=== PATIENT | male | born 2000 | race Two or more races ===

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

== ENCOUNTER 2022-03-11 04:30 | Emergency (ER) | payer OTHER ==
[2022-03-11] MEDS ORDERED: Morphine 4 MG/ML VIAL ONE (04:47)
[2022-03-11] MEDS ORDERED: HYDROcodone/Acetaminophen 5/325 mg Tablet ONE (05:20)
[2022-03-11] MEDS ORDERED: Ketorolac Tromethamine 30 MG/ML VIAL ONE (05:20)
== END 2022-03-11 05:37 | disposition home or self-care (01) ==
LOC: BURERS 04:30
DX: S42.411A Displaced simple supracondylar fracture without intercondylar fracture of right humerus, initial encounter for closed fracture (principal); W01.0XXA Fall on same level from slipping, tripping and stumbling without subsequent striking against object, initial encounter
CPT/HCPCS: 96372; J1885; J2270